=== PATIENT | female | born 1940 | race Caucasian/White ===

== ENCOUNTER → 2017-05-19 14:46 | Outpatient (CLI) | payer MEDICARE, SELFPAY ==
--- NOTE | 2017-05-19 14:50 | VDLE_ITS ---
Reason For Study: pain RIGHT LEFT CFV is compressible, spontaneous, phasic, GSV is normal. competent and demonstrates normal CFV is compressible, spontaneous, phasic, augmentation. competent, and demonstrates normal Procedure augmentation. Exam performed in department. FV is compressible, spontaneous, phasic, The exam was diagnostic. competent and demonstrates normal A preliminary report was called and/or faxed augmentation. to [facility]. POP V is compressible, spontaneous, phasic, competent and demonstrates normal augmentation. T/P Trunk is compressible. PTV is compressible. LT PerV is compressible. Interpretation Summary Deep veins of the left lower extremity are patent and compressible segmentally. There is no evidence of left lower extremity deep vein thrombosis. Valvular competence appears intact within the proximal deep venous system on the left . The left greater saphenous vein appears patent and compressible segmentally. Ordering Physician: Celeste Portillo Performed By: Tony Hidalgo RVT
--- NOTE | 2017-05-19 15:08 | RAD_ITS ---
STUDY: X-RAY - LUMBAR SPINE REASON FOR EXAM: Female, 76 years old. Pain TECHNIQUE: 5 view(s) of the lumbar spine were obtained. COMPARISON: None FINDINGS: There is osteopenia. There is mild degenerative spondylolisthesis at L5-S1 and L4-L5 and L3-L4. Degenerative disc disease predominates at L3-L4 and L4-L5. There is no fracture. There is no osseous destruction. There is mild curvature with convexity to the right. The SI joints are intact. RAD/L/S Spine Min 4 Views IMPRESSION: Mild degenerative spondylolisthesis, L5-S1, L4-L5, L3-L4 Degenerative disc disease predominating at L3-L4 and L4-L5 Dextroscoliosis Osteopenia Electronically Signed: Edgardo Dinh MD at 22:24 EST Tel , Service support ,
== END ==
PROVIDERS: Family Provider Family Medicine; PCP Family Medicine; Visit Provider Nurse Practitioner Family
DX: M79.662 Pain in left lower leg (principal); R29.898 Other symptoms and signs involving the musculoskeletal system; M43.16 Spondylolisthesis, lumbar region; M51.36 Other intervertebral disc degeneration, lumbar region; M41.86 Other forms of scoliosis, lumbar region; M85.88 Other specified disorders of bone density and structure, other site
CPT/HCPCS: 72110; 93971

== ENCOUNTER 2021-01-15 20:39 | Emergency (ER) | payer MEDICARE, MEDICAID, SELFPAY ==
[2021-01-15 20:41] VITALS: BP 178/82; PULSE 72; RESP 16; TEMP 35.9; O2SAT 97; BMI 39.3
--- NOTE | 2021-01-15 20:43 | CT_ITS ---
INDICATION: HEAD INJURY EXAMINATION: CT BRAIN - CT Head or Brain W/O Contrast Injection TECHNIQUE: Multiple axial images were obtained of the head without intravenous contrast. A radiation dose optimization technique was used for this scan. IV Contrast dosage and agent: None. COMPARISON: 08/19/2016 CT head FINDINGS: BRAIN PARENCHYMA: No intra- or extra-axial hemorrhage. No evidence of acute infarct. No intracranial mass or mass effect. There is preservation of the beauchamp/white matter interface. No hyperdense vessel. There is a roughly 1 cm diameter area of decreased density in the right cerebellum, new compared to prior exam suggesting prior infarct. Nonvascular related injury or lesion is not excluded. CSF SPACES: Appropriate for age with some symmetric diffuse parenchymal volume loss noted. No hydrocephalus. Basal cisterns are patent. CALVARIUM, SKULL BASE, PARANASAL SINUSES AND MASTOID AIR CELLS: Clear. No discrete lytic or blastic abnormalities. ORBITS: Both globes, extraocular muscles, optic nerves and retrobulbar fat appear unremarkable. 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 No evidence of acute intracranial pathology. Electronically Signed: Alphonso Au DO at 21:22 EDT Tel , Service support ,
--- NOTE | 2021-01-15 21:44 | EX.ED.DYSGE1 ---
HPI History of Present Illness Chief Complaint: Head Injury Informant: patient Onset/Context/Timing Onset: Days (2 days ago) Current Severity: Mild Maximum Severity: Mild Narrative Narrative: Patient presents after a fall 2 days ago. She states that she slipped on something on the floor and fell striking her head on the hardwood floor. She did not lose consciousness. She is not on anticoagulants. She states she is just not quite felt right since. Family was concerned and brought her in this evening. She reports some mild right-sided neck pain that is better today than yesterday. No weakness or paresthesias in the extremities. [facility] Medical History Fibromyalgia HTN (hypertension) Home Medications docusate sodium [Stool Softener] 100 mg PO BID 12/31/15 [History Last Taken 12/31/15] ergocalciferol (vitamin D2) [Vitamin D2] 50,000 unit PO WE 12/31/15 [History Last Taken 12/26/15] furosemide 40 mg PO DAILY 12/31/15 [History Last Taken 12/31/15] pantoprazole 40 mg PO DAILY 12/31/15 [History Last Taken 12/31/15] potassium chloride [Klor-Con M20] 20 meq PO DAILY 12/31/15 [History Last Taken 12/31/15] trazodone 100 mg PO QHS 12/31/15 [History Last Taken 12/30/15] nystatin-triamcinolone 1 applic TOPICAL TID 01/05/16 [History Last Taken Unknown] allopurinol 300 mg PO DAILY 06/10/16 [History Last Taken Unknown] naproxen [Naprosyn] 500 mg PO BID PRN 06/10/16 [History Last Taken Unknown] spironolactone 12.5 mg PO DAILY 06/10/16 [History Last Taken Unknown] gabapentin [Neurontin] 300 mg PO QHS 08/19/16 [History Last Taken Unknown] sertraline 50 mg PO DAILY 08/19/16 [History Last Taken Unknown] hydrocodone-acetaminophen 1 - 2 tab PO Q4H PRN PRN #12 tablet 08/20/16 [Rx Last Taken Unknown] ondansetron 4 mg PO Q8H PRN PRN #10 tab 08/20/16 [Rx Last Taken Unknown] Allergy/AdvReac Type Severity Reaction Status Date / Time lyrica AdvReac Unknown Uncoded 01/15/21 21:35 Surgical History (Updated 01/15/21 @ 21:39 by Juno Willams) Hx of cholecystectomy Social History (Updated 01/15/21 @ 23:[address] Lydia Tovar MD) Smoking Status: Never smoker alcohol intake: current Alcohol type: beer ROS ROS ED Constitutional Constitutional ED: Denies chills or fever(s) Eyes Eyes: Denies change in vision ENT ENT ED: Denies sore throat Cardiovascular Cardiovascular: Denies chest pain Respiratory/Chest Respiratory/Chest: Denies cough or dyspnea Gastrointestinal Gastrointestinal: Denies abdominal pain, diarrhea, nausea or vomiting Genitourinary Genitourinary ED: Denies dysuria Musculoskeletal Musculoskeletal: Reports neck pain; Denies back pain Integumentary Denies rash Neurologic Neurologic: Reports headache(s); Denies weakness Allergic/Immunologic Allergic/Immunologic ED: Denies urticaria EXAM Physical Exam Const Vital Signs: 01/15/21 20:41 01/15/21 21:35 Temperature 96.7 F L Temperature Source Temporal Pulse Rate 72 Respiratory Rate 16 Respiratory Effort Normal Respiratory Pattern Normal Blood Pressure 178/82 H Blood Pressure Mean 114 Pulse Ox 97 Oxygen Delivery Method Room Air Positive well nourished and well developed General Appearance ED: well developed HEENT Reports moist mucous membranes Negative for trauma Eyes PERRL and EOMs intact bilaterally Neck Neck Narrative: Mild tenderness right cervical paraspinal muscles. No midline tenderness. Chest Wall inspection of chest normal and palpation of chest normal Resp normal respiratory effort and clear to auscultation bilaterally Cardio regular rate and regular rhythm GI normal to inspection, nondistended, normoactive bowel sounds and non-tender Palpation: soft Extremity normal to inspection Neuro oriented x3 and no sensory deficits noted Sensorium / Orientation: alert Motor Exam: strength 5/5 throughout Psych mental status grossly normal Skin no rashes or lesions noted MDM MDM MDM Narrative Medical decision making narrative: CT head ordered prior to my initial evaluation. 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 No evidence of acute intracranial pathology. Electronically Signed: Alphonso Au DO at 21:22 EDT Tel , Service support , Treatment and Re-Evaluation Comments:: Evaluation patient is a normal neuro exam. Head CT unremarkable for acute trauma. I did discuss with her obtaining a CT of her C-spine in light of her neck pain. This was ordered but then patient changed her mind and stated that she did not want a wait for this. She is alert and oriented x3 and can declined this test. Discharge instructions are provided and encouraged to return for any worsening symptoms or concerns. Discharge Plan Triage Chief Complaint: Head Injury ED Provider: Lydia Tovar Dx/Rx/DC Orders Clinical Impression: CHI (closed head injury) Instructions: ED Head Injury (Adult) Prescriptions: No Action furosemide 40 MG tablet 40 mg PO DAILY RF: 0 potassium chloride [Klor-Con M20] 20 MEQ Tab.Er.Prt 20 meq PO DAILY RF: 0 trazodone 100 MG tablet 100 mg PO QHS RF: 0 pantoprazole 40 MG tablet 40 mg PO DAILY RF: 0 docusate sodium [Stool Softener] 100 MG capsule 100 mg PO BID RF: 0 ergocalciferol (vitamin D2) [Vitamin D2] 50,000 UNIT capsule 50,000 unit PO WE RF: 0 nystatin-triamcinolone 1 APPLIC Tube 1 applic topical TID RF: 0 spironolactone 25 MG tablet 12.5 mg PO DAILY RF: 0 allopurinol 300 MG tablet 300 mg PO DAILY RF: 0 naproxen [Naprosyn] 500 MG tablet 500 mg PO BID PRN (Reason: Pain) RF: 0 gabapentin [Neurontin] 300 MG capsule 300 mg PO QHS RF: 0 sertraline 50 MG tablet 50 mg PO DAILY RF: 0 hydrocodone-acetaminophen 1 TABLET tablet 1 - 2 tab PO Q4H PRN PRN (Reason: Pain) Qty: 12 RF: 0 ondansetron 4 MG tablet 4 mg PO Q8H PRN PRN (Reason: Nausea) Qty: 10 RF: 0 Primary Care Provider: Zhen Cheng Referrals: Zhen Cheng MD [Primary Care Provider] - 1-2 Weeks Disposition Disposition: Home, Self Care Discharge Date/Time: 01/15/21 21:57
--- NOTE | 2021-01-15 21:56 | ED.RN ---
pt. refuses neck ct, states she wants to go home. dr. ora melchor.
== END 2021-01-15 21:57 | disposition home or self-care (01) ==
LOC: ED 21:49
PROVIDERS: Emergency Provider Emergency Medicine; PCP Family Medicine
DX: S09.90XA Unspecified injury of head, initial encounter (principal); W01.10XA Fall on same level from slipping, tripping and stumbling with subsequent striking against unspecified object, initial encounter
CPT/HCPCS: 70450; 99282

== ENCOUNTER 2021-11-17 11:34 | Emergency (ER) | payer MEDICARE, MEDICAID, SELFPAY ==
[2021-11-17 11:35] VITALS: BP 176/137; PULSE 81; RESP 23; TEMP 36.5; O2SAT 95; BMI 42.1
[2021-11-17 11:41] VITALS: BP 176/137; PULSE 84; RESP 21; TEMP 36.5; O2SAT 95
--- NOTE | 2021-11-17 11:43 | RAD_ITS ---
EXAM: XR CHEST, 1 VIEW CLINICAL INDICATION: cough TECHNIQUE: Frontal view of the chest. This report was created using [employer] report generation technology. COMPARISON: XR Chest dated december 31 2015 FINDINGS: LUNGS AND PLEURAL SPACES: Normal. No consolidation or edema. No pneumothorax. No effusion. HEART: Normal heart size. MEDIASTINUM: Central airways are unremarkable. No mediastinal or hilar mass. BONES/JOINTS: No acute abnormality. SOFT TISSUES: Normal. VASCULATURE: Ectasia of the thoracic aorta again noted. RAD/Chest 1 View (Portable) IMPRESSION: No acute cardiopulmonary abnormality. No interval change Electronically Signed: Madi Cooper MD at 12:38 EDT ,
--- NOTE | 2021-11-17 11:43 | EKG12_ITS ---
Test Reason : SOB Blood Pressure : / mmHG Vent. Rate : 074 BPM Atrial Rate : 074 BPM P-R Int : 180 ms QRS Dur : 100 ms QT Int : 406 ms P-R-T Axes : 062 026 055 degrees QTc Int : 450 ms Normal sinus rhythm Normal ECG Confirmed by COLIN INFANTE, LAMBERTO ([id number]), health editor URSULA MILLS ([id number]) on 11/19/2021 9:19:28 AM Referred By: DC Confirmed By:ZORAIDA SHAW MD
[2021-11-17] MEDS: Labetalol (Prefilled) 20 MG/4 ML 10 MG IV ×2 (11:56→12:53)
[2021-11-17 12:04] LABS: Absolute Lymphocyte Count 2.43 X10^3/uL (0.83-4.51); Absolute Neutrophil Count 3.3 X10^3/uL (2.0-7.7); Basophil# 0.02 X10^3/uL; Basophil% 0.3 % (0-1); Eosinophil# 0.09 X10^3/uL; Eosinophils% 1.4 % (0-5); Hematocrit 40.9 % (37-47); Hemoglobin 13.6 g/dL (12.0-15.0); Lymphocyte # 2.43 X10^3/ul (0.83-4.51); Lymphocyte % 37.6 % (19-41); Mean Corp Hgb Conc 33.3 g/dL (32-36); Mean Corpuscular Volume 96.2 fL (81-99); Mean Platelet Vol. 10.4 fl (6.2-12.0); Monocyte# 0.61 X10^3/uL; Monocyte% 9.4 % (0-10); NRBC Flagged by Analyzer 0 % (0-5); Neutrophil # 3.29 X10^3/uL (2.7-7.7); Platelet Count 157 K/mm3 (150-450); RBC Distribution Width CV 13.3 % (11.6-14.6); RBC Distribution Width SD 47.2 fl (35.1-43.9); Red Blood Count 4.25 M/mm3 (4.2-5.4); White Blood Count 6.5 K/mm3 (4.4-11.0)
[2021-11-17 12:22] LABS: ALB/GLOB Ratio 0.8 RATIO (0.9-2.4); AST(SGOT) 15 U/L (15-37); Alanine Aminotransfer ALT/SGPT 21 U/L (13-56); Albumin, Serum 2.9 g/dL (3.2-5.0); Alkaline Phosphatase 69 U/L (45-117); Anion Gap 6 (5-15); BUN 5 mg/dL (7-18); BUN/Creat Ratio 8.1 RATIO (10-20); Chloride 110 mmol/L (98-107); Creatinine, Serum 0.62 mg/dL (0.55-1.02); EST Glomerular Filtration Rate 98 mL/min (>60); Est Glom Filt Rate - Afr Amer 119 mL/min (>60); Globulin 3.6 g/dL (2.2-4.2); Glucose 108 mg/dL (74-106); Lipase 94 U/L (73-393); Potassium 3.2 mmol/L (3.5-5.1); Protein, Total 6.5 g/dL (6.4-8.2); Sodium Level 142 mmol/L (136-145); Troponin-I HS 10 pg/mL (3.0-54.0)
[2021-11-17 12:44] VITALS: BP 200/169; PULSE 80; RESP 28; TEMP 36.2; O2SAT 97
[2021-11-17 13:01] LABS: Mucous, Urine 0 SEEN /hpf (<or=2+); Red Blood Cells-Urine 0 SEEN /hpf (0-5); White Blood Cells 0 SEEN /hpf (0-5)
[2021-11-17 13:05] LABS: Color, Urine Yellow (Yellow); Glucose, Dipstick Normal (Normal); Ketone-Dipstick Negative (Negative); Leukocyte Esterase-Dipstick Negative /ul (Negative); Nitrite-Dipstick Negative (Negative); Occult Blood-Urine Negative /ul (Negative); Protein-Dipstick 30 mg/dl (Negative); Specific Gravity, Urine 1.015 (1.002-1.030); Urine Bilirubin Dipstick Negative (Negative); Urine Clarity Clear (Clear); Urine Urobilinogen Normal (Normal)
[2021-11-17 13:11] LABS: Bacteria 1+ /hpf (None Seen); Squamous Epithelial Cells - UA 5-10 SEEN /hpf (5-10)
[2021-11-17 13:38] VITALS: BP 179/84; PULSE 78; RESP 30; RESP 35; TEMP 36.3; O2SAT 94; O2SAT 95
[2021-11-17] MEDS: Potassium Chloride Oral Tablet 20 MEQ 40 MEQ PO (13:58)
[2021-11-17 14:01] VITALS: BP 157/74; PULSE 85; RESP 26; TEMP 36.3; O2SAT 95
--- NOTE | 2021-11-17 14:22 | EDS_ITS ---
HPI History of Present Illness Chief Complaint: General Illness Informant: patient Onset/Context/Timing Onset: Days Current Severity: Moderate Associated Symptoms Associated Symptoms: Cough, fever, diarrhea Narrative Narrative: Patient presents for diarrhea, cough, fever for the past week. No chest pain. No bleeding. She has not been feeling well, and so she did not take her medications. No other associated symptoms. Nothing seems to bring this on or make it worse. Nothing seems to help make it better. She denies any history of this. [facility] Medical History Acid reflux Alcohol abuse CHF (congestive heart failure) Depression Fibromyalgia HTN (hypertension) Home Medications furosemide 40 mg tablet 40 mg PO DAILY 12/31/15 [History Last Taken 12/31/15] pantoprazole 40 mg tablet,delayed release 40 mg PO DAILY 12/31/15 [History Last Taken 12/31/15] potassium chloride 20 mEq tablet,extended release(part/cryst) (Klor-Con M) 20 meq PO DAILY 12/31/15 [History Last Taken 12/31/15] trazodone 100 mg tablet 100 mg PO QHS 12/31/15 [History Last Taken 12/30/15] allopurinol 300 mg tablet 300 mg PO DAILY 06/10/16 [History Last Taken Unknown] naproxen 500 mg tablet (Naprosyn) 500 mg PO BID PRN Pain 06/10/16 [History Last Taken Unknown] spironolactone 25 mg tablet 12.5 mg PO DAILY 06/10/16 [History Last Taken Unknown] buspirone 15 mg tablet 15 mg PO BID 11/17/21 [History Last Taken Unknown] duloxetine 60 mg capsule,delayed release 60 mg PO DAILY 11/17/21 [History Last Taken Unknown] metoprolol tartrate 50 mg tablet 50 mg PO BID 11/17/21 [History Last Taken Unknown] Allergy/AdvReac Type Severity Reaction Status Date / Time lyrica AdvReac Unknown Uncoded 11/17/21 11:46 Surgical History Hx of cholecystectomy Social History Smoking Status: Current every day smoker tobacco type: cigarettes alcohol intake: current Alcohol type: beer ROS ROS ED Constitutional Constitutional ED: Reports fever(s) Eyes Eyes: Denies blurry vision ENT ENT ED: Denies ear pain Cardiovascular Cardiovascular: Denies chest pain Respiratory/Chest Respiratory/Chest: Reports cough Gastrointestinal Gastrointestinal: Reports diarrhea; Denies abdominal pain, constipation or melena Genitourinary Genitourinary ED: Denies dysuria Musculoskeletal Musculoskeletal: Denies arthralgias Integumentary Denies abscess Neurologic Neurologic: Denies headache(s) Psychiatric Psychiatric: Denies anxiety Endocrine Endocrinology: Denies cold intolerance Hematologic/Lymphatic Hematologic/Lymphatic: Denies easy bruising Allergic/Immunologic Allergic/Immunologic ED: Denies mouth swelling EXAM Physical Exam Const Vital Signs: 11/17/21 11:35 11/17/21 11:41 11/17/21 11:44 Temperature 97.7 F L 97.7 F L Temperature Source Temporal Temporal Pulse Rate 81 84 Respiratory Rate 23 H 21 H Respiratory Effort Normal Short of Breath Respiratory Pattern Normal Blood Pressure 176/137 H 176/137 H Blood Pressure Mean 150 150 Pulse Ox 95 95 Oxygen Delivery Method Room Air Room Air 11/17/21 12:44 11/17/21 13:38 11/17/21 13:38 Temperature 97.1 F L 97.3 F L Temperature Source Temporal Temporal Pulse Rate 80 78 78 Respiratory Rate 28 H 30 H 35 H Respiratory Effort Respiratory Pattern Blood Pressure 200/169 H 179/84 H 179/84 H Blood Pressure Mean 179 115 115 Pulse Ox 97 95 94 Oxygen Delivery Method Room Air Room Air Room Air 11/17/21 14:01 Temperature 97.3 F L Temperature Source Temporal Pulse Rate 85 Respiratory Rate 26 H Respiratory Effort Respiratory Pattern Blood Pressure 157/74 H Blood Pressure Mean 101 Pulse Ox 95 Oxygen Delivery Method Room Air Positive well nourished and well developed General Appearance ED: well developed HEENT Reports moist mucous membranes Eyes EOMs intact bilaterally Resp normal respiratory effort and clear to auscultation bilaterally Cardio regular rate and regular rhythm GI normal to inspection, nondistended, normoactive bowel sounds, non-tender and non-distended Neuro oriented x3 Sensorium / Orientation: alert Psych mental status grossly normal Skin no rashes or lesions noted MDM MDM MDM Narrative Medical decision making narrative: EKG showed sinus rhythm at a rate of 74. No sign of acute infarction pattern. This was interpreted by me. Chest x-ray was reviewed by the radiologist and myself and showed no acute abnormality. Potassium was 3.2. This was replaced. She is not taking her supplements. The rest of her labs were all fairly unremarkable, stable. COVID test was negative. Urinalysis unremarkable. Patient was found to be hypertensive and required multiple doses of labetalol. On reevaluation blood pressure is 157/74. No further medications were indicated. She has not been taking her medications Patient was unable to provide a stool sample for testing. Have low suspicion for C. difficile. Patient was up and ambulating. Seem to be doing well. Blood pressure and vitals were stable or improved. Symptoms had resolved. She will continue taking her medications at home. She lives with her son. Return for any new or worsening issues. Impression #1 diarrheal illness Impression #2 hypokalemia Impression #3 history of hypertension Lab Data Attestation: I reviewed the patient's lab results. Labs: Laboratory Results - last 24 hr 11/17/21 11/17/21 11/17/21 11:40 11:40 12:51 WBC 6.5 RBC 4.25 Hgb 13.6 Hct 40.9 MCV 96.2 MCH 32.0 MCHC 33.3 RDW Std Deviation 47.2 H RDW Coeff of Luis 13.3 Plt Count 157 MPV 10.4 Immature Gran % (Auto) 0.300 Neut % (Auto) 51.0 Lymph % (Auto) 37.6 [place] % (Auto) 9.4 Eos % (Auto) 1.4 Baso % (Auto) 0.3 Absolute Neuts (auto) 3.3 Absolute Lymphs (auto) 2.43 Nucleated RBC % 0 Sodium 142 Potassium 3.2 L Chloride 110 H Carbon Dioxide 26.0 Anion Gap 6 BUN 5 L Creatinine 0.62 Estim Creat Clear Calc 34.90 Est GFR (MDRD) Af Amer 119 Est GFR (MDRD) Non-Af 98 BUN/Creatinine Ratio 8.1 L Glucose 108 H Calcium 8.0 L Total Bilirubin 0.40 AST 15 ALT 21 Alkaline Phosphatase 69 Troponin I High Sens 10 Total Protein 6.5 Albumin 2.9 L Globulin 3.6 Albumin/Globulin Ratio 0.8 L Lipase 94 Urine Color Yellow Urine Clarity Clear Urine pH 6.0 Ur Specific [place] 1.015 Urine Protein 30 H Urine Glucose (UA) Normal Urine Ketones Negative Urine Occult Blood Negative Urine Nitrite Negative Urine Bilirubin Negative Urine Urobilinogen Normal Ur Leukocyte Esterase Negative Urine RBC 0 SEEN Urine WBC 0 SEEN Ur Squamous Epith Cells 5-10 SEEN Urine Bacteria 1+ Urine Mucus 0 SEEN Radiography Diagnostic Testing: Clinical Impression(s) from Imaging Studies Chest X-Ray 11/17/21 11:43 IMPRESSION: No acute cardiopulmonary abnormality. No interval change Electronically Signed: Madi Cooepr MD at 12:38 EDT Reading Location ID and State: [facility] / [place] Tel , Service support , Discharge Plan Triage Chief Complaint: General Illness ED Provider: Arian Mann Dx/Rx/DC Orders Prescriptions: No Action furosemide 40 MG tablet 40 mg PO DAILY Label Comments: water pill/diuretic potassium chloride [Klor-Con M20] 20 MEQ tablet,ER particles/crystals 20 meq PO DAILY Label Comments: TAKE 1 TABLET BY MOUTH TWICE DAILY. supplement trazodone 100 MG tablet 100 mg PO QHS Label Comments: sleep pantoprazole 40 MG tablet 40 mg PO DAILY spironolactone 25 MG tablet 12.5 mg PO DAILY allopurinol 300 MG tablet 300 mg PO DAILY naproxen [Naprosyn] 500 MG tablet 500 mg PO BID PRN (Reason: Pain) metoprolol tartrate 50 mg Tablet 50 mg PO BID buspirone 15 mg Tablet 15 mg PO BID duloxetine 60 mg Capsule,Delayed Release(Dr/Ec) 60 mg PO DAILY Primary Care Provider: Zhen Cheng Referrals: Zhen Cheng MD [Primary Care Provider] -
[2021-11-17 14:54] VITALS: BP 115/68; PULSE 79; RESP 29; TEMP 36.1; O2SAT 95
== END 2021-11-17 14:55 | disposition home or self-care (01) ==
PROVIDERS: Emergency Provider Emergency Medicine; PCP Family Medicine; Visit Provider Emergency Medicine
DX: R19.7 Diarrhea, unspecified (principal); I11.0 Hypertensive heart disease with heart failure; I50.9 Heart failure, unspecified; E87.6 Hypokalemia; K21.9 Gastro-esophageal reflux disease without esophagitis; F17.210 Nicotine dependence, cigarettes, uncomplicated; Z79.899 Other long term (current) drug therapy
CPT/HCPCS: 71045; 80053; 81001; 83690; 84484; 85025; 87811; 93005; 96374; 96376; 99285; J7040; A4216

== ENCOUNTER 2024-08-11 20:17 | Emergency (ER) | payer MEDICARE, MEDICAID, SELFPAY ==
[2024-08-11] VITALS (8 sets, daily range): BP systolic 158–162; BP diastolic 81–107; PULSE 67–87; RESP 20–31; TEMP 36.2; O2SAT 93–97; BMI 46.5
--- NOTE | 2024-08-11 20:47 | EKG12_ITS ---
Test Reason : SOB Blood Pressure : */* mmHG Vent. Rate : 69 BPM Atrial Rate : 69 BPM P-R Int : 182 ms QRS Dur : 96 ms QT Int : 410 ms P-R-T Axes : 52 25 57 degrees QTcB Int : 439 ms Sinus rhythm with marked sinus arrhythmia Otherwise normal ECG Confirmed by Alphonso Morley ([id number]), rewrite editor URSULA MILLS ([id number]) on 08/15/2024 10:41:16 AM Referred By: Confirmed By: Alphonso Morley
[2024-08-11] MEDS: Ipratropium/Albuterol Sulfate 3 ML AMPUL.NEB INHALATION (20:58)
[2024-08-11 21:11] LABS: Absolute Lymphocyte Count 2.89 X10^3/uL (0.83-4.51); Absolute Neutrophil Count 3.7 X10^3/uL (2.0-7.7); Basophil# 0.03 X10^3/uL; Basophil% 0.4 % (0-1); Eosinophil# 0.13 X10^3/uL; Eosinophils% 1.8 % (0-5); Hematocrit 43.1 % (37-47); Hemoglobin 13.9 g/dL (12.0-15.0); Lymphocyte # 2.89 X10^3/ul (0.83-4.51); Lymphocyte % 39.8 % (19-41); Mean Corp Hgb Conc 32.3 g/dL (32-36); Mean Corpuscular Hgb 31.3 pg (27.0-32.0); Mean Corpuscular Volume 97.1 fL (81-99); Mean Platelet Vol. 10.9 fl (6.2-12.0); Monocyte# 0.45 X10^3/uL; Monocyte% 6.2 % (0-10); NRBC Flagged by Analyzer 0 % (0-5); Neutrophil # 3.74 X10^3/uL (2.7-7.7); Neutrophil % 51.4 % (47-70); Platelet Count 206 K/mm3 (150-450); RBC Distribution Width SD 50.4 fl (35.1-43.9); Red Blood Count 4.44 M/mm3 (4.2-5.4); White Blood Count 7.3 K/mm3 (4.4-11.0)
[2024-08-11] MEDS: 0.9% Normal Saline (1000mL) 1,000 ML 999 ML IV (21:20)
[2024-08-11 21:22] LABS: Prothrombin Time (Protime)PT. 13.3 SECONDS (11.7-14.9)
[2024-08-11 21:23] LABS: Partial Thromboplast Time 24.7 Seconds (24.1-36.2)
--- NOTE | 2024-08-11 21:28 | RAD_ITS ---
PROCEDURE: CHEST PA AND LATERAL 08/11/2024 REASON FOR EXAM: COUGH, SOB TECHNIQUE: Frontal and lateral views of the chest. COMPARISON: None FINDINGS: Hardware: None Heart: Heart size is mildly enlarged. Mediastinum: The mediastinal contour is unremarkable. Lungs: Prominent bilateral interstitial markings, concerning for congestion. No pneumothorax. Bones: Degenerative changes are identified within the thoracic spine. RAD/Chest PA and Lateral IMPRESSION: Mild cardiomegaly with pulmonary vascular congestion. Reading Location: [facility]
[2024-08-11 21:41] LABS: Lactic Acid 1.7 mmol/L (0.0-2.0); Pro- Brain NATRIURETIC PEPTIDE 630 pg/mL (<=1800)
[2024-08-11 21:42] LABS: AST(SGOT) 28 U/L (<=31); Alanine Aminotransfer ALT/SGPT 12 U/L (<=34); Albumin, Serum 3.6 g/dL (3.4-4.8); Alkaline Phosphatase 72 U/L (35-104); Anion Gap 9 (5-15); BUN 7 mg/dL (4-19); BUN/Creat Ratio 9.9 RATIO (10-20); Calcium,Total 8.9 mg/dL (7.6-11.0); Chloride 104 mmol/L (98-108); Creatinine, Serum 0.75 mg/dL (0.70-1.20); EST Glomerular Filtration Rate 79 (>60); Estimated Creatinine Clearance 64.08 ml/min (50-250); Globulin 3.4 g/dL (2.2-4.2); Glucose 120 mg/dL (70-99); Potassium 4.7 mmol/L (3.3-5.1); Sodium Level 138 mmol/L (133-145); Total Bilirubin 0.42 mg/dL (0.00-1.30)
--- NOTE | 2024-08-11 22:27 | EX.ED.DYSGE1 ---
HPI History of Present Illness Chief Complaint: Cough Narrative Narrative: Patient is a 83-year-old female with past medical history of CHF, depression, GERD, hypertension, fibromyalgia, alcohol abuse who presented to the emergency department chief complaint of shortness of breath and cough. She states that she has had a cough for several weeks however she has had worsening shortness of breath with exertion and increased weakness. She denies any recent contacts. She states that she can barely walk from her bedroom to the bathroom without becoming severely short of breath. Patient states that her son made her come here to be evaluated. [facility] Medical History Alcohol abuse CHF (congestive heart failure) Depression Acid reflux Fibromyalgia HTN (hypertension) Home Medications ?Medication ?Instructions ?Recorded ?Last Taken ?Type furosemide 40 mg tablet 40 mg PO DAILY 12/31/15 12/31/15 History pantoprazole 40 mg tablet,delayed 40 mg PO DAILY 12/31/15 12/31/15 History release potassium chloride 20 mEq 20 meq PO DAILY 12/31/15 12/31/15 History tablet,extended release(part/cryst) (Klor-Con M) trazodone 100 mg tablet 100 mg PO QHS 12/31/15 12/30/15 History allopurinol 300 mg tablet 300 mg PO DAILY 06/10/16 Unknown History naproxen 500 mg tablet (Naprosyn) 500 mg PO BID PRN Pain 06/10/16 Unknown History spironolactone 25 mg tablet 12.5 mg PO DAILY 06/10/16 Unknown History buspirone 15 mg tablet 15 mg PO BID 11/17/21 Unknown History duloxetine 60 mg capsule,delayed 60 mg PO DAILY 11/17/21 Unknown History release metoprolol tartrate 50 mg tablet 50 mg PO BID 11/17/21 Unknown History albuterol sulfate 90 mcg/actuation 2 puff inhalation Q6H PRN 08/11/24 Unknown Rx aerosol inhaler (Ventolin HFA) shortness of breath or wheezing #8.5 grams prednisone 50 mg tablet 50 mg PO DAILY 4 days #4 tabs 08/11/24 Unknown Rx Allergy/AdvReac Type Severity Reaction Status Date / Time pregabalin AdvReac NEEDS Verified 01/01/22 15:04 FOLLOW-UP Surgical History Hx of cholecystectomy Social History Smoking Status: Never smoker alcohol intake: current Alcohol type: beer ROS ROS ED ROS Narrative Constitutional: Denies fevers, chills, headaches Eyes: Denies change in vision double vision blurry vision Cardiovascular: Denies chest pain or palpitations Respiratory: Complains of cough and shortness of breath as noted above Abdomen: Denies abdominal pain nausea vomit diarrhea : Denies urinary symptoms Neurological: Denies numbness, weakness, tingling Musculoskeletal: Denies back pain Skin: Denies rashes or lesions EXAM Physical Exam Narrative Exam Narrative: General: Patient lying in bed rest comfortably did not appear to be in acute distress Head: Atraumatic, normocephalic Eyes: PERRL bilateral, EOMI bilateral, no conjunctival injection noted Neck: Soft, supple, trachea midline Cardiovascular: Regular rate and rhythm Respiratory: Patient had mild crackly noted the right lung base Abdomen: Soft, nondistended, nontender to palpation Extremities: +4/5 strength noted in the bilateral upper and lower extremities, radial pulses +2/4 in the bilateral extremities Neurological: Patient following commands knew that she was at [facility] the year is 2024 Skin: Warm, dry, intact no rashes or lesions noted Const Vital Signs: 08/11/24 20:18 08/11/24 20:19 08/11/24 20:28 Temperature 97.2 F L 97.2 F L Temperature Source Temporal Temporal Pulse Rate 70 70 70 Respiratory Rate 30 H 30 H 26 H Respiratory Effort Respiratory Depth Respiratory Pattern Blood Pressure 158/81 H 158/81 H 158/81 H Blood Pressure Mean 106 106 106 Pulse Ox 94 94 93 Oxygen Delivery Method Room Air Room Air 08/11/24 20:58 08/11/24 21:13 08/11/24 21:14 Temperature Temperature Source Pulse Rate 67 Respiratory Rate 22 H Respiratory Effort Normal Non-Labored Respiratory Depth Normal Respiratory Pattern Tachypnea Normal Blood Pressure Blood Pressure Mean Pulse Ox Oxygen Delivery Method Room Air Room Air 08/11/24 22:00 08/11/24 23:00 Temperature Temperature Source Pulse Rate 73 87 Respiratory Rate 20 H 29 H Respiratory Effort Respiratory Depth Respiratory Pattern Blood Pressure 162/107 H Blood Pressure Mean 122 Pulse Ox 97 96 Oxygen Delivery Method MDM MDM MDM Narrative Medical decision making narrative: Patient is a 83-year-old female who presents to the emergency department with chief complaint of cough and shortness of breath. On the differential diagnosis includes but not limited to ACS, pneumonia, pneumothorax, CHF exacerbation. Once workup is obtained reviewed she will be reevaluated. Patient was given a DuoNeb as well as IV fluids however was only given 1 L of fluid secondary for concern for hypervolemic state with her dyspnea on exertion Patient CBC reviewed and showed no evidence leukocytosis white blood count normal at 7.3, hemoglobin stable 13.9, platelet count of 2 of 6. Patient sodium normal at 130, potassium normal 4.7, creatinine normal at 0.75. Patient's lactic acid normal at 1.7, AST and ALT were 28 and 12 respectively. Patient proBNP normal at 630, EKG reviewed and showed sinus rhythm with a rate of 69 bpm. Patient chest x-ray reviewed by myself and by radiology which showed mild cardiomegaly with pulmonary vascular congestion. Patient's COVID flu and RSV were negative. Patient ambulated well here in the emergency department no hypoxia no tachycardia and felt well she would like to go home at this point time. She was advised to return with worsening symptoms or concerns. Patient will be given a course of prednisone and albuterol inhaler as needed she did have mild wheezing she has no smoking history or self but states that she is constantly around individuals who do smoke and inhales the secondhand smoke so she may have a bit of underlying COPD. Patient's family member at bedside is agreeable to plan all question concerns answered she was discharged home in stable condition. Lab Data Labs: Laboratory Results - last 24 hr 08/11/24 21:00 WBC 7.3 RBC 4.44 Hgb 13.9 Hct 43.1 MCV 97.1 MCH 31.3 MCHC 32.3 RDW Std Deviation 50.4 H RDW Coeff of Luis 14.0 Plt Count 206 MPV 10.9 Immature Gran % (Auto) 0.400 Neut % (Auto) 51.4 Lymph % (Auto) 39.8 Cottle % (Auto) 6.2 Eos % (Auto) 1.8 Baso % (Auto) 0.4 Absolute Neuts (auto) 3.7 Absolute Lymphs (auto) 2.89 Nucleated RBC % 0 PT 13.3 INR 1.0 APTT 24.7 Sodium 138 Potassium 4.7 Chloride 104 Carbon Dioxide 25.0 Anion Gap 9 BUN 7 Creatinine 0.75 Estim Creat Clear Calc 64.08 Est GFR (MDRD) Non-Af 79 BUN/Creatinine Ratio 9.9 L Glucose 120 H Lactic Acid 1.7 Calcium 8.9 Total Bilirubin 0.42 AST 28 ALT 12 Alkaline Phosphatase 72 NT pro BNP II 630 Total Protein 7.0 Albumin 3.6 Globulin 3.4 Albumin/Globulin Ratio 1.0 Radiography Diagnostic Testing: Clinical Impression(s) from Imaging Studies Chest X-Ray 08/11/24 21:28 IMPRESSION: Mild cardiomegaly with pulmonary vascular congestion. [facility] Triage Chief Complaint: Cough ED Provider: Kip Ragland Dx/Rx/DC Orders Clinical Impression: Upper respiratory infection, viral, Shortness of breath Prescriptions: New albuterol sulfate [Ventolin HFA] 90 mcg/actuation HFA aerosol inhaler 2 puff inhalation Q6H PRN (Reason: shortness of breath or wheezing) Qty: 8.5 0RF prednisone 50 mg tablet 50 mg PO DAILY 4 Days Qty: 4 0RF No Action furosemide 40 MG tablet 40 mg PO DAILY Patient Comments: water pill/diuretic potassium chloride [Klor-Con M20] 20 MEQ tablet,ER particles/crystals 20 meq PO DAILY Patient Comments: TAKE 1 TABLET BY MOUTH TWICE DAILY. supplement trazodone 100 MG tablet 100 mg PO QHS Patient Comments: sleep pantoprazole 40 MG tablet 40 mg PO DAILY spironolactone 25 MG tablet 12.5 mg PO DAILY allopurinol 300 MG tablet 300 mg PO DAILY naproxen [Naprosyn] 500 MG tablet 500 mg PO BID PRN (Reason: Pain) metoprolol tartrate 50 mg Tablet 50 mg PO BID buspirone 15 mg Tablet 15 mg PO BID duloxetine 60 mg Capsule,Delayed Release(Dr/Ec) 60 mg PO DAILY Primary Care Provider: Zhen Cheng Referrals: Zhen Cheng MD [Primary Care Provider] - Activity Restrictions/Additional Instructions: Follow-up with your doctor in the outpatient setting. Use prescriptions as prescribed are sent to your pharmacy. Return with worsening symptoms or concerns. Your blood work did not show any acute findings your chest x-ray did not show findings of pneumonia. When you ambulated here in the emergency department your oxygen level stayed normal. Print Language: Romanian Disposition Disposition: Home, Self Care
[2024-08-11] MEDS: predniSONE 20 MG Tablet 60 MG PO (23:35)
== END 2024-08-11 23:48 | disposition home or self-care (01) ==
PROVIDERS: Emergency Provider Emergency Medicine; PCP Family Medicine; Visit Provider Emergency Medicine
DX: J06.9 Acute upper respiratory infection, unspecified (principal); I11.0 Hypertensive heart disease with heart failure; I50.9 Heart failure, unspecified
CPT/HCPCS: 71046; 80053; 83605; 83880; 85025; 85610; 85730; 87040; 87149; 87631; 93005; 94640; 96360; 96361; 99285; A4216